=== PATIENT | female | born 1965 | race Caucasian/White ===

== ENCOUNTER 2019-03-13 21:32 | Emergency (ER) | payer BC ==
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
[2019-03-14] MEDS ORDERED: oxyCODONE/ACETAMIN 5/325MG TH 2 TAB/BOTTLE PO ONE (00:30)
[2019-03-14] MEDS ORDERED: oxyCODON/ACET (*)5/325MG (CII) 1 TAB TAB PO ONE (00:30)
[2019-03-14 00:36] VITALS: BP 134/96
[2019-03-14] MEDS ORDERED: OXYC-865 PO (00:52)
== END 2019-03-14 01:20 | disposition home or self-care (01) ==
LOC: ER 21:59
DX: S62.101A Fracture of unspecified carpal bone, right wrist, initial encounter for closed fracture (principal)
CPT/HCPCS: 29125; 72220; 73110; 73564; 73590; 73610; 99284; A4565; L1830; 36415